=== PATIENT | female | born 1975 | race Caucasian/White ===

== ENCOUNTER 2022-05-19 06:13 | Day surgery (SDC) | payer OTHER ==
[~2022-05-19] VITALS: Ht 144.8 cm; Wt 70.8 kg
[2022-05-19] MEDS ORDERED: LIDOCAINE 2% 100 MG/5 ML UJET TP ONE (07:18)
[2022-05-19] MEDS ORDERED: fentaNYL citrate 0.05 MG/ML VIAL ONE (07:18)
[2022-05-19] MEDS ORDERED: MIDAZOLAM 5 MG/5 ML VIAL ONE (07:18)
[2022-05-19] MEDS ORDERED: diphenhydrAMINE 50 MG/ML VIAL ONE (07:18)
[2022-05-19] MEDS ORDERED: fentaNYL citrate 0.05 MG/ML VIAL IVP ONE (13:50)
[2022-05-19] MEDS ORDERED: MIDAZOLAM 2 MG/2 ML VIAL IVP ONE (13:50)
== END 2022-05-19 08:41 | disposition home or self-care (01) ==
LOC: MDS 06:13 → MMU 06:14 → MDS 08:41
PROVIDERS: ATTEND Internal Medicine Gastroenterology
DX: K62.5 Hemorrhage of anus and rectum (principal); K29.50 Unspecified chronic gastritis without bleeding; K64.4 Residual hemorrhoidal skin tags; K64.8 Other hemorrhoids; R10.13 Epigastric pain; I10 Essential (primary) hypertension; E78.5 Hyperlipidemia, unspecified; F32.A Depression, unspecified; F41.9 Anxiety disorder, unspecified; Z20.822 Contact with and (suspected) exposure to COVID-19; Z79.899 Other long term (current) drug therapy
CPT/HCPCS: 43239; 45378; 87426; J2250; J3010; J1200